=== PATIENT | male | born 1955 | race Caucasian/White ===

== ENCOUNTER 2023-04-07 16:32 | Emergency (ER) | payer MEDICARE, OTHER, SELFPAY ==
[2023-04-07 16:43] VITALS: BP 166/103; BMI 27.4
--- NOTE | 2023-04-07 18:27 | ED.GENMED ---
History of Present Illness
General
Chief Complaint: Skin Surface Trauma
Time Seen by Provider: 04/07/23 18:09
Travel History
Have you had any contact with someone who has COVID-19?: No
Do you have any symptoms of coronavirus? Fever > 100 degrees, chills, cough, shortness of breath, sore throat, loss of taste or smell, muscle aches, or headache?: No
History of Present Illness
History of Present Illness:
60-year-old male presents the emergency department for evaluation of a right middle finger laceration sustained on a table saw. There is a vertical laceration along the extensor surface of the digit from the tip through the proximal phalanx. No
obvious bony tissue visible. Injury directly to the nail plate into the nailbed. Bleeding is now controlled. Last tetanus is unknown
Review of Systems
Review of Systems
Allergies reviewed?: Yes
All Other Systems: ROS reviewed and negative except as documented in HPI and ROS
Phy Exam
Physical Exam
Physical Exam:
GEN: Well appearing, NAD, WDWN
HEENT: Oral mucosa moist, no scleral icterus
Cardiac: Regular rate
Lung: No respiratory distress, no tachypnea
MSK: No gross deformity or injuries
Skin: Good color, no pallor or jaundice, no rashes. 2 cm laceration vertically through the tip of the third phalanx extending into the proximal phalanx adjacent to the DIP joint. Bleeding is controlled. No evident bony injury. Wound runs through
the nailbed and plate.
Neuro: AO x3, moves all extremities freely
Psych: Calm, cooperative
Course
Orders/Labs/Results
Orders:
Orders
04/07/23 18:30
Tetanus/Diphth/Acelpertussis [Adacel] 0.5 ml IM .ONCE ONE
CR Finger(s)/thumb Min 2 Vw Rt Urgent
Comment:
Reason For Exam: R third finger
04/07/23 19:26
Cephalexin Monohydrate [Keflex] 500 mg PO NOW STA
Vital Signs
Initial and Last Documented VS:
Initial Vital Signs
Temp Pulse Resp BP Pulse Ox
98.2 F 71 16 166/103 96
04/07/23 16:43 04/07/23 16:43 04/07/23 16:43 04/07/23 16:43 04/07/23 16:43
Last Documented Vital Signs
Temp Pulse Resp BP Pulse Ox
98.2 F 71 16 166/103 96
04/07/23 16:43 04/07/23 16:43 04/07/23 16:43 04/07/23 16:43 04/07/23 16:43
MDM/Problems Addressed
MDM/Problems Addressed:
X-rays are suggestive of very small tuft fracture. Will start the patient on empiric antibiotics as a result. After copious irrigation I placed 3 5-0 Chromic Gut sutures to the nailbed and eponychium however wound approximation is quite difficult
as there is significant tissue loss. Will recommend outpatient hand surgery follow-up. The wound was dressed with Xeroform and roll gauze
*Critical Care Note
Total Time (30-74mins, 75-104mins- exclusive of procedures): Not Applicable
ED Attending Note
-
Portions of this chart may have been created with voice recognition software.� Occasional wrong word or��sound alike� substitutions may have occurred due to the inherent limitations of voice recognition software.
Discharge Plan
Departure
Patient Disposition: Home (Routine Discharge)
Date of Disposition: 04/07/23
Time of Disposition: 19:26
Patient with high blood pressure during this ER visit?: Yes
Discharge Problem:
Laceration of right middle finger, Open finger fracture
Instructions: Wound Care (DC)
Prescriptions:
New
cephalexin 500 mg capsule
500 mg PO TID 7 Days Qty: 21 0RF
No Action
warfarin [Coumadin] 4 mg Tablet
4 mg PO Q OTHER DAY
Referrals:
Jessica Angel MD [Family Provider] -
Redd Zepeda MD [Active] -
Activity Restrictions/Additional Instructions:
Change dressing using the vaseline gauze tomorrow, then daily with vaseline and non stick gauze
Interventions
Interventions:
*Risk Screen - Suicide Last Done: 04/07/23 16:43
*General Assessment Last Done: 04/07/23 17:42
*Neglect/Abuse Screening Last Done: 04/07/23 16:43
ED- Fall Risk Assessment Last Done: 04/07/23 16:43
*ED COVID-19 Vaccine History Last Done: 04/07/23 16:43
*Nursing Disposition Last Done: 04/07/23 19:38
ED-Skin Assessment Last Done: 04/07/23 17:43
Discharge Date and Time
Discharge Date/Time: 04/07/23 19:38
[2023-04-07] MEDS: ADACEL 0.5 ML IM (18:45)
[2023-04-07] MEDS: KEFLEX 500 MG PO (19:34)
== END 2023-04-07 19:38 | disposition home or self-care (01) ==
LOC: EMR 16:32
PROVIDERS: EMERGENCY PHYSICIAN Emergency Medicine; FAMILY PHYSICIAN Internal Medicine
DX: S62.662B Nondisplaced fracture of distal phalanx of right middle finger, initial encounter for open fracture (principal); W31.2XXA Contact with powered woodworking and forming machines, initial encounter
CPT/HCPCS: 11760; 99283; 90471; 73140; 90715

== ENCOUNTER 2023-09-29 04:58 | Emergency (ER) | payer MEDICARE, OTHER, SELFPAY ==
[2023-09-29 05:01] VITALS: BP 157/79
--- NOTE | 2023-09-29 05:41 | ED.GENMED ---
History of Present Illness
<Nayely Moyer DO - Last Filed: 10/01/23 08:14>
General
Chief Complaint: Urinary Symptoms
Time Seen by Provider: 09/29/23 05:24
History of Present Illness
History of Present Illness:
68-year-old male with history of CAD status post stenting, aortic valve replacement on Coumadin, history of frequent UTIs presenting to the emergency department for concern of UTI. Patient reports 2 days ago he started to have urinary urgency with
dysuria. He went to his primary care doctor yesterday, had his urine tested, however results are still pending. He was started on Bactrim. However, last evening he had worsening symptoms including chills, lower abdominal discomfort, nausea
without vomiting. Reports history of pyelonephritis in the past, was told to come to the ER if fever develop. Reports fever of 101.8 last evening, took Tylenol around 8 PM. Denies chest pain or difficulty breathing. Denies any back or flank
pain. Denies additional acute medical complaints
Phy Exam
<Nayely Moyer DO - Last Filed: 10/01/23 08:14>
Physical Exam
Physical Exam:
General: No acute distress, dry mucous membranes
HEENT: protecting airway
Neck: appears supple
CV: Normal heart rate, regular rhythm, no evidence of cyanosis
Resp: No accessory muscle use, no increased work of breathing, lungs clear to auscultation bilaterally
Abd: Soft and non-distended, mild right-sided tenderness, no rebound or guarding, no CVA tenderness
Extremities: No deformities, no swelling, no erythema, pulses and sensation intact
Neuro: alert, no focal neurologic deficit
: deferred
Rectal: deferred
Psych: Normal affect
Skin: Intact
Course
<Nayely Moyer DO - Last Filed: 10/01/23 08:14>
Orders/Labs/Results
Orders:
Orders
09/29/23 05:34
0.9% Sodium Chloride 1000 ml [Nss] 1,000 ml IV BOLUS
Acetaminophen [Tylenol] 1,000 mg PO NOW STA
Ondansetron Injectable [Zofran] 4 mg IV NOW STA
09/29/23 05:35
CT Abd/pelvis W Iv Cont Urgent
Comment:
Reason For Exam: urinary symptoms, right sided pain, hx pyelo
09/29/23 05:55
Complete Blood Count/With Diff Urgent
Comprehensive Metabolic Panel Urgent
Lactic Acid Urgent
PTT Urgent
Prothrombin Time Urgent
09/29/23 07:13
Urinalysis Reflex To Culture Urgent
Date Specimen was Collected: 09/29/23
Time Specimen was Collected: 07:02
Urine Microscopic Reflex Cult Urgent
Urine Culture Urgent
LESLIE Source: U
Specimen Description:
Date Specimen was Collected: 09/29/23
Time Specimen was Collected: 07:02
09/29/23 08:19
CefTRIAXone [Rocephin] 1,000 mg IV NOW STA
Abnormal Lab Results
09/29/23 09/29/23
05:55 07:13
WBC 14.3 H 10^3/uL
(4.8-10.8)
RBC 4.09 L 10^6/uL
(4.70-6.10)
Hgb 12.3 L g/dL
(13.0-18.0)
Hct 34.8 L %
(39.0-52.0)
Abs Immat Gran (auto) 0.1 H 10^3/uL
(0-0.05)
Absolute Neuts (auto) 12.5 H 10^3/uL
(1.4-6.5)
Absolute Lymphs (auto) 0.6 L 10^3/uL
(1.2-3.4)
Absolute Monos (auto) 1.1 H 10^3/uL
(0.1-0.6)
Neutrophils % 87.3 H %
(42.2-75.2)
Lymphocytes % 4.1 L %
(20.5-51.1)
PT 32.5 H Sec
(11.4-14.6)
APTT 53.7 H Sec
(23.4-35.0)
Glucose 111 H mg/dl
(70-99)
Ur Occult Blood Reflex 4+ A
(Negative)
Leukocyte Esterase Rfl 2+ A
(Negative)
Urine RBC 26-30 A /HPF
(0-2)
Urine WBC (Reflex) 40-50 A /HPF
(0-5)
Urine Bacteria (Reflex) Few A
(Negative)
Urine Glucose Trace A
(Negative)
Urine Albumin (Reflex) 1+ A
(Neg - Trace)
09/29/23 05:55
09/29/23 05:55
Vital Signs
Initial and Last Documented VS:
Initial Vital Signs
Temp Pulse Resp BP Pulse Ox
100.3 F 88 20 157/79 97
09/29/23 05:01 09/29/23 05:01 09/29/23 05:01 09/29/23 05:01 09/29/23 05:01
Last Documented Vital Signs
Temp Pulse Resp BP Pulse Ox
98.5 F 78 18 119/71 96
09/29/23 09:39 09/29/23 09:39 09/29/23 09:39 09/29/23 09:39 09/29/23 09:39
Gulshanlt;Bryce Sewell, - Last Filed: 09/29/23 08:57>
Orders/Labs/Results
Orders:
Orders
09/29/23 05:34
0.9% Sodium Chloride 1000 ml [Nss] 1,000 ml IV BOLUS
Acetaminophen [Tylenol] 1,000 mg PO NOW STA
Ondansetron Injectable [Zofran] 4 mg IV NOW STA
09/29/23 05:35
CT Abd/pelvis W Iv Cont Urgent
Comment:
Reason For Exam: urinary symptoms, right sided pain, hx pyelo
09/29/23 05:55
Complete Blood Count/With Diff Urgent
Comprehensive Metabolic Panel Urgent
Lactic Acid Urgent
PTT Urgent
Prothrombin Time Urgent
09/29/23 07:13
Urinalysis Reflex To Culture Urgent
Date Specimen was Collected: 09/29/23
Time Specimen was Collected: 07:02
Urine Microscopic Reflex Cult Urgent
Urine Culture Urgent
LESLIE Source: U
Specimen Description:
Date Specimen was Collected: 09/29/23
Time Specimen was Collected: 07:02
09/29/23 08:19
CefTRIAXone [Rocephin] 1,000 mg IV NOW STA
Abnormal Lab Results
09/29/23 09/29/23
05:55 07:13
WBC 14.3 H 10^3/uL
(4.8-10.8)
RBC 4.09 L 10^6/uL
(4.70-6.10)
Hgb 12.3 L g/dL
(13.0-18.0)
Hct 34.8 L %
(39.0-52.0)
Abs Immat Gran (auto) 0.1 H 10^3/uL
(0-0.05)
Absolute Neuts (auto) 12.5 H 10^3/uL
(1.4-6.5)
Absolute Lymphs (auto) 0.6 L 10^3/uL
(1.2-3.4)
Absolute Monos (auto) 1.1 H 10^3/uL
(0.1-0.6)
Neutrophils % 87.3 H %
(42.2-75.2)
Lymphocytes % 4.1 L %
(20.5-51.1)
PT 32.5 H Sec
(11.4-14.6)
APTT 53.7 H Sec
(23.4-35.0)
Glucose 111 H mg/dl
(70-99)
Ur Occult Blood Reflex 4+ A
(Negative)
Leukocyte Esterase Rfl 2+ A
(Negative)
Urine RBC 26-30 A /HPF
(0-2)
Urine WBC (Reflex) 40-50 A /HPF
(0-5)
Urine Bacteria (Reflex) Few A
(Negative)
Urine Glucose Trace A
(Negative)
Urine Albumin (Reflex) 1+ A
(Neg - Trace)
09/29/23 05:55
09/29/23 05:55
Vital Signs
Initial and Last Documented VS:
Initial Vital Signs
Temp Pulse Resp BP Pulse Ox
100.3 F 88 20 157/79 97
09/29/23 05:01 09/29/23 05:01 09/29/23 05:01 09/29/23 05:01 09/29/23 05:01
Last Documented Vital Signs
Temp Pulse Resp BP Pulse Ox
98.5 F 78 18 119/71 96
09/29/23 09:39 09/29/23 09:39 09/29/23 09:39 09/29/23 09:39 09/29/23 09:39
<Nayely Moyer, DO - Last Filed: 10/01/23 08:14>
MDM/Problems Addressed
MDM/Problems Addressed:
68-year-old male with history of CAD status post stenting, aortic valve replacement on Coumadin, history of frequent UTIs presenting for fever, chills, abdominal pain, urgency. Vital signs on arrival significant for low-grade fever.
On exam, patient in no acute distress, nontoxic, however does have dry mucous membranes and appears slightly dehydrated. No reproducible CVA tenderness, however does have generalized tenderness to the right side of the abdomen. Symptoms appear
consistent with a complicated UTI. Patient was started on Bactrim yesterday. Unclear if failure of outpatient therapy, given that patient was only started on the medication yesterday. Patient reports history of pyelonephritis in the past
requiring admission. For this reason, will obtain laboratory analysis and CT imaging. Will start IV fluids. Tylenol administered for fever
06:50 -patient with leukocytosis, however normal lactic acid. Blood pressure remains stable without concern for severe sepsis or septic shock. Pending urinalysis and CT imaging, signed out to incoming physician.
<Nayely Moyer DO - Last Filed: 10/01/23 08:14>
*Critical Care Note
Total Time (30-74mins, 75-104mins- exclusive of procedures): Not Applicable
<Bryce Sewell DO - Last Filed: 09/29/23 08:57>
Update Note
Update Note:
I evaluated patient at bedside. The patient is well-appearing on reassess 8:30 AM. Leukocytosis noted, renal function normal. 40-50 white cells per high-power field on urinalysis. Given dose of Rocephin. There is no sign of kidney infection or
ureteral stone on imaging.
ED Attending Note
<Nayely Moyer DO - Last Filed: 10/01/23 08:14>
-
Portions of this chart may have been created with voice recognition software.� Occasional wrong word or��sound alike� substitutions may have occurred due to the inherent limitations of voice recognition software.
Discharge Plan
Departure
Patient Disposition: Home (Routine Discharge)
Date of Disposition: 09/29/23
Time of Disposition: 08:54
Patient with high blood pressure during this ER visit?: Yes
Discharge Problem:
Urinary tract infection
Prescriptions:
No Action
warfarin [Coumadin] 4 mg Tablet
4 mg PO Q OTHER DAY
cephalexin 500 mg capsule
500 mg PO TID 7 Days Qty: 21 0RF
Referrals:
Jessica Angel MD [Family Provider] -
Activity Restrictions/Additional Instructions:
Continue antibiotics; return here if worse. Your CAT scan shows no sign of kidney stone nor kidney infection.
Interventions
Interventions:
*Risk Screen - Suicide Last Done: 09/29/23 05:01
*General Assessment Last Done: 09/29/23 05:01
*Neglect/Abuse Screening Last Done: 09/29/23 05:01
ED- Fall Risk Assessment Last Done: 09/29/23 05:01
*ED COVID-19 Vaccine History Last Done: 09/29/23 05:01
*Nursing Disposition Last Done: 09/29/23 09:39
ED-Male Genitourinary Assessment Last Done: 09/29/23 06:01
Discharge Date and Time
Discharge Date/Time: 09/29/23 09:41
Print Language: OCCITAN
[2023-09-29] MEDS: ZOFRAN 4 MG IV (05:53)
[2023-09-29] MEDS: TYLENOL 1000 MG PO (05:53)
[2023-09-29] MEDS: NSS 1000 IV (05:53)
[2023-09-29 05:56] VITALS: BP 125/71
[2023-09-29 06:01] VITALS: BMI 29.6
[2023-09-29 06:04] LABS: % Basophils 0.2 % (0-2); % Eosinophils 0.1 % (0-6); % Immature Granulocytes 0.5 % (0-0.5); % Lymphocytes 4.1 % (20.5-51.1); % Monocytes 7.8 % (1.7-9.3); % Neutrophils 87.3 % (42.2-75.2); Absolute Immature Granulocytes 0.1 10^3/uL (0-0.05); Absolute Lymphocytes 0.6 10^3/uL (1.2-3.4); Absolute Monocytes 1.1 10^3/uL (0.1-0.6); Absolute Neutrophils 12.5 10^3/uL (1.4-6.5); Hematocrit 34.8 % (39.0-52.0); Hemoglobin 12.3 g/dL (13.0-18.0); Mean Corp Hgb Conc. 35.3 g/dL (33.0-37.0); Mean Corpuscular Hgb 30.1 pg (27.0-31.0); Mean Corpuscular Volume 85.1 fL (80.0-94.0); Mean Platelet Volume 8.7 fL (7.4-10.4); Nucleated Red Blood Cells % 0 % (-); Platelet Count 162 10^3/uL (130-400); Red Blood Cell Count 4.09 10^6/uL (4.70-6.10); Red Cell Dist. Width 14.5 % (11.5-14.5); White Blood Cell Count 14.3 10^3/uL (4.8-10.8)
[2023-09-29 06:15] LABS: INR 3.11; PT 32.5 Sec (11.4-14.6)
[2023-09-29 06:16] LABS: APTT 53.7 Sec (23.4-35.0)
[2023-09-29 06:17] LABS: Lactic Acid 1.6 mmol/L (0.7-2.0)
[2023-09-29 06:25] LABS: ALT (SGPT) 20 U/L (0-50); AST (SGOT) 23 U/L (17-59); Albumin 4.1 g/dl (3.5-5.0); Alkaline Phosphatase 97 U/L (38-126); Blood Urea Nitrogen 18 mg/dl (9-20); Carbon Dioxide 23 mmol/L (22-30); Chloride 103 mmol/L (98-107); Estimated Creatinine Clearance 60 ml/min; Glucose 111 mg/dl (70-99); Potassium 3.8 mmol/L (3.5-5.1); Sodium 135 mmol/L (135-145); Total Bilirubin 0.8 mg/dl (0.2-1.3); Total Protein 6.6 g/dl (6.3-8.2); eGFR > 60.00
[2023-09-29 07:27] LABS: Urine Albumin 1+ (Neg - Trace); Urine Bilirubin Negative (Negative); Urine Character Slightly Cloudy (Clear); Urine Color Yellow; Urine Glucose Trace (Negative); Urine Ketone Negative (Negative); Urine Leukocyte 2+ (Negative); Urine Nitrite Negative (Negative); Urine Occult Blood 4+ (Negative); Urine Specific Gravity 1.015 (<1.030); Urine Urobilinogen Negative (Neg - 1+)
[2023-09-29 08:00] LABS: Urine Squamous Cell 0-2 /LPF (Few)
[2023-09-29 08:01] LABS: Urine Bacteria Few (Negative); Urine Red Blood Cell 26-30 /HPF (0-2); Urine White Cell 40-50 /HPF (0-5)
[2023-09-29] MEDS: ROCEPHIN 1000 MG IV (08:44)
[2023-09-29 09:26] VITALS: BP 119/71
[2023-09-29 09:39] VITALS: BP 119/71
== END 2023-09-29 09:41 | disposition home or self-care (01) ==
LOC: EMR 04:58
PROVIDERS: EMERGENCY PHYSICIAN Student in an Organized Health Care Education/Training Program; FAMILY PHYSICIAN Internal Medicine
DX: N39.0 Urinary tract infection, site not specified (principal); I25.10 Atherosclerotic heart disease of native coronary artery without angina pectoris; Z79.01 Long term (current) use of anticoagulants; Z87.440 Personal history of urinary (tract) infections; Z95.2 Presence of prosthetic heart valve; Z95.5 Presence of coronary angioplasty implant and graft
CPT/HCPCS: 99284; 96374; 96375; 96361; 74177; 80053; 81003; 81015; 83605; 85025; 85610; 85730; 87086; Q9967

== ENCOUNTER 2023-11-02 17:50 | Emergency (ER) | payer MEDICARE, OTHER, SELFPAY ==
[2023-11-02 18:04] VITALS: BP 125/81
[2023-11-02 19:35] VITALS: BP 136/89
--- NOTE | 2023-11-02 19:48 | ED.GENMED ---
History of Present Illness
General
Chief Complaint: Cold/Flu/URI Symptoms
Source: patient and spouse
Exam Limitations: none
Time Seen by Provider: 11/02/23 19:22
Nursing documentation reviewed up to this point in time: agreed with
History of Present Illness
History of Present Illness:
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
the ER. Patient started with symptoms of COVID yesterday tested positive. He has a fever chills body aches cough denies shortness of breath. Patient is drinking fluids. He was sent by his oncologist at [facility] (DR Abad ) for admission for IV
remdesivir
Review of Systems
Review of Systems
Allergies reviewed?: Yes
All Other Systems: ROS reviewed and negative except as documented in HPI and ROS
Constitutional: Reports fever, fatigue and chills
EENT: Reports no symptoms
Respiratory: Reports cough; Denies trouble breathing
Cardiac: Reports no symptoms
ABD/GI: Reports no symptoms; Denies nausea or vomiting
: Reports no symptoms
Musculoskeletal: Reports other (body aches )
Skin: Reports no symptoms
Neurological: Reports no symptoms
Hematologic/Lymphatic: Reports no symptoms
Psychiatric: Reports no symptoms
Phy Exam
General Physical Exam
General Presentation: no apparent distress
General age: appears stated age
General Skin: warm and dry
General Habitus: normal
General Mental: alert
General Hydration: appears well hydrated
Cardiovascular Exam
Cardiovascular Exam: regular rate/rhythm and no murmur
Pulmonary Exam
Pulmonary Exam: lungs clear and no respiratory distress
Neurological Exam
Neurological Exam: alert and oriented x3
Musculoskeletal Exam
Musculoskeletal Exam: full ROM
Skin Exam
Skin Exam: normal color and warm/dry
Psychiatric Exam
Psychiatric Exam: normal mood/affect
Course
Orders/Labs/Results
Orders:
Orders
11/02/23 20:24
Chest [CR Chest - 2 Views ] Urgent
Comment:
Reason For Exam: cough covid +
Vital Signs
Initial and Last Documented VS:
Initial Vital Signs
Temp Pulse Resp BP Pulse Ox
99.6 F 87 20 125/81 97
11/02/23 18:04 11/02/23 18:04 11/02/23 18:04 11/02/23 18:04 11/02/23 18:04
Last Documented Vital Signs
Temp Pulse Resp BP Pulse Ox
99.7 F 81 16 133/105 98
11/02/23 19:35 11/02/23 21:04 11/02/23 21:04 11/02/23 21:04 11/02/23 21:04
MDM/Problems Addressed
Differential Diagnosis Includes:
not limited to covid
MDM/Problems Addressed:
Patient is a 68-year-old male as documented with history melanoma metastasis to lung treated several years ago at [facility] with immunotherapy and radiation currently no longer requiring treatment. Patient started with COVID symptoms yesterday tested
positive. Patient does have fever chills cough body aches but denies shortness of breath. Patient arrives to the awake alert no acute distress he is nontoxic. Not hypoxic clear lungs nontachycardic. He did take Tylenol prior to arrival
temperature is down. Patient's reports they were sent by their oncologist at [facility] to get IV remdesivir. Patient is not a candidate for admission and is not hypoxic and does not meet criteria for admission/remdesivir. Chest x-ray offered
patient declines. reports they will call oncologist tomorrow however patient is very stable for discharge home with supportive care for COVID.
*Pulse Oximetry
Patient hypoxic: no
*Critical Care Note
Total Time (30-74mins, 75-104mins- exclusive of procedures): Not Applicable
ED Attending Note
-
Portions of this chart may have been created with voice recognition software.� Occasional wrong word or��sound alike� substitutions may have occurred due to the inherent limitations of voice recognition software.
Discharge Plan
Departure
Patient Disposition: Home (Routine Discharge)
Date of Disposition: 11/02/23
Time of Disposition: 20:50
Patient with high blood pressure during this ER visit?: Yes
Condition: Fair
Covid-19: Not Applicable
Discharge Problem:
COVID-19
Instructions: COVID-19 ED
Prescriptions:
No Action
warfarin [Coumadin] 4 mg Tablet
4 mg PO Q OTHER DAY
cephalexin 500 mg capsule
500 mg PO TID 7 Days Qty: 21 0RF
Referrals:
Jessica Angel MD [Family Provider] -
Activity Restrictions/Additional Instructions:
As discussed be sure to get plenty of rest stay well-hydrated. You may take Tylenol for symptoms. Follow-up with your oncologist as discussed at [facility] for further evaluation return if any worsening of symptoms.
Interventions
Interventions:
*Risk Screen - Suicide Last Done: 11/02/23 18:04
*General Assessment Last Done: 11/02/23 18:04
*Neglect/Abuse Screening Last Done: 11/02/23 18:04
ED- Fall Risk Assessment Last Done: 11/02/23 19:23
*ED COVID-19 Vaccine History Last Done: 11/02/23 19:23
*Nursing Disposition Last Done: 11/02/23 21:05
ED- Pulmonary Assessment Last Done: 11/02/23 19:23
Discharge Date and Time
Discharge Date/Time: 11/02/23 21:05
Print Language: [place]
[2023-11-02 21:04] VITALS: BP 133/105
== END 2023-11-02 21:05 | disposition home or self-care (01) ==
LOC: EMR 17:50
PROVIDERS: EMERGENCY PHYSICIAN Emergency Medicine; FAMILY PHYSICIAN Internal Medicine
DX: U07.1 COVID-19 (principal); I10 Essential (primary) hypertension; E78.00 Pure hypercholesterolemia, unspecified
CPT/HCPCS: 99283

== ENCOUNTER 2024-03-22 08:57 | Emergency (ER) | payer MEDICARE, OTHER, SELFPAY ==
[2024-03-22 09:03] VITALS: BP 144/86
--- NOTE | 2024-03-22 10:42 | ED.GENMED ---
History of Present Illness
General
Chief Complaint: Abdominal Symptoms
Time Seen by Provider: 03/22/24 10:42
History of Present Illness
History of Present Illness:
TIME OF INITIAL ENCOUNTER: 10:45 AM
HPI: The patient presents with abdominal pain that started about 8 hours ago. This feels similar to time that he had diverticulitis. He was admitted for [place] for diverticulitis in the past. He has had no fevers. The pain is primarily
localized to the left lower quadrant. He has had some constipation recently. He has no rectal bleeding.
EXAM:
GENERAL: Well appearing in no distress
HEENT: Moist oral mucosa
CARDIOVASCULAR: No murmurs, normal heart rate, regular rhythm, No chest wall tenderness
PULMONARY: No respiratory distress, breath sounds are clear and equal
ABDOMEN: Soft with no peritoneal signs, moderate left lower quadrant tenderness
NEUROLOGIC: Excellent strength all extremities, no coordination deficits
PSYCHIATRIC: Appropriate mental status, normal insight and judgement
EXTREMITIES: Nontender, no edema, moves all extremities equally
SKIN: No rash, no lesions
NUMBER AND COMPLEXITY OF PROBLEMS ADDRESSED AT THE ENCOUNTER
� Chronic conditions affecting care: Has had cardiac arrest, CAD, high blood pressure, colitis, diverticular disease, melanoma
� Acute Exacerbation and/or Progression of Chronic Illness: This is an acute problem but is had similar episode in the past
� Differential Diagnosis includes: Diverticulitis, colitis, mesenteric adenitis, epiploic appendagitis, muscle strain of the abdominal wall, ureteral stone
AMOUNT AND/OR COMPLEXITY OF DATA TO BE REVIEWED AND ANALYZED
� I performed an independent evaluation of and my interpretation is:
EKG:
CT: I personally viewed CT imaging and suspected short segment of diverticulitis
X-rays:
Laboratory Studies: White count 11.9, hemoglobin 12.6, INR 2.02, chemistries unremarkable, lipase and LFTs unremarkable
Other:
� Review of other/old records: The patient was seen in the Emergency Department in October 2023 with COVID
� Clinical information was obtained by an independent historian: I spoke to the at bedside
� Prescriptions/Medications Considered but not given:
� Further testing considered but not performed:
RISK OF COMPLICATIONS AND/OR MORBIDITY OR MORTALITY OF PATIENT MANAGEMENT
� Social determinants of health affecting care: Lives at home, planning to travel to [place] in 10 days
� Discussion with other providers:
� Escalation of care including admission/observation vs risk of discharge considered: The patient appears fairly comfortable but does have moderate left lower quadrant pain CT imaging obtained.
ANY OTHER UPDATES:
1:10 PM: I reassessed patient. The patient appears very comfortable and was resting comfortably after a low-dose of Dilaudid was given. The patient states that he had 1 episode of diverticulitis where he had a perforation. He was told that he
might require surgery if this happens again. They prefer to follow-up with [facility] as opposed to [facility].
1:30 PM: Remains to appear very comfortable. Will start Augmentin. Will also give short course of tramadol but he is encouraged to return here if worse.
Phy Exam
Physical Exam
Physical Exam:
See HPI
Course
Orders/Labs/Results
Orders:
Orders
03/22/24 09:11
Electrocardiogram (*1) Urgent
Reason for Study: Abdominal Pain
EKG- Treatment ONCE
03/22/24 10:46
HYDROmorphone [Dilaudid] 0.5 mg IV NOW STA
Ondansetron Injectable [Zofran] 4 mg IV NOW STA
03/22/24 10:47
CT Abd/pelvis W Iv Cont Urgent
Comment:
Reason For Exam: LLQ pain tender
03/22/24 11:00
Prothrombin Time Urgent
03/22/24 11:01
Complete Blood Count/With Diff Urgent
Comprehensive Metabolic Panel Urgent
Lipase Urgent
03/22/24 13:22
Amoxicillin 875 mg/Clav 125 mg [Augmentin 875 mg/125 mg] 1 tablet PO NOW STA
Abnormal Lab Results
03/22/24 03/22/24
11:00 11:01
WBC 11.9 H 10^3/uL
(4.8-10.8)
RBC 4.34 L 10^6/uL
(4.70-6.10)
Hgb 12.6 L g/dL
(13.0-18.0)
Hct 38.4 L %
(39.0-52.0)
MCHC 32.8 L g/dL
(33.0-37.0)
Absolute Neuts (auto) 9.0 H 10^3/uL
(1.4-6.5)
Absolute Monos (auto) 1.4 H 10^3/uL
(0.1-0.6)
Neutrophils % 75.9 H %
(42.2-75.2)
Lymphocytes % 11.1 L %
(20.5-51.1)
Monocytes % 11.8 H %
(1.7-9.3)
PT 23.4 H Sec
(11.4-14.6)
Carbon Dioxide 31 H mmol/L
(22-30)
Glucose 100 H mg/dl
(70-99)
03/22/24 11:01
03/22/24 11:01
Vital Signs
Initial and Last Documented VS:
Initial Vital Signs
Temp Pulse Resp BP Pulse Ox
36.9 C 68 16 144/86 98
03/22/24 09:03 03/22/24 09:03 03/22/24 09:03 03/22/24 09:03 03/22/24 09:03
Last Documented Vital Signs
Temp Pulse Resp BP Pulse Ox
36.9 C 68 16 131/79 100
03/22/24 09:03 03/22/24 09:03 03/22/24 09:03 03/22/24 11:00 03/22/24 11:00
*Critical Care Note
Total Time (30-74mins, 75-104mins- exclusive of procedures): Not Applicable
ED Attending Note
-
Portions of this chart may have been created with voice recognition software.� Occasional wrong word or��sound alike� substitutions may have occurred due to the inherent limitations of voice recognition software.
Discharge Plan
Departure
Patient Disposition: Admit
Date of Disposition: 03/22/24
Time of Disposition: 13:22
Presentation/result/management discussed w/ accepting MD/DO: Hospitalist
Discharge Problem:
Diverticulitis
Instructions: Diverticulitis, BLOOD PRESSURE
Prescriptions:
New
amoxicillin-pot clavulanate 875-125 mg tablet
1 tab PO BID Qty: 14 0RF
tramadol 50 mg tablet
50 - 100 mg PO Q8H PRN (Reason: Pain) Qty: 15 0RF
No Action
warfarin [Coumadin] 4 mg Tablet
4 mg PO Q OTHER DAY
cephalexin 500 mg capsule
500 mg PO TID 7 Days Qty: 21 0RF
Referrals:
Neeraj Zarate MD [Active] - Follow up in 1 week
Jessica Angel MD [Family Provider] -
Margareth Oneil DO [Active] - Follow up in 1 week
Activity Restrictions/Additional Instructions:
The CAT scan shows a short segment of diverticulitis with no sign of complication such as abscess or perforation. Your white count was minimally elevated 11.9. I have given you the contact information for a local GI doctor (Dr. Oneil) (
[facility]) sleep and I have also given you the contact information for local colorectal surgeon since you have had multiple bouts of diverticulitis in the past.
Interventions
Interventions:
*Risk Screen - Suicide Last Done: 03/22/24 09:03
*Neglect/Abuse Screening Last Done: 03/22/24 09:03
Discharge Date and Time
Print Language: [place]
[2024-03-22 10:58] VITALS: BP 136/71; BMI 27.6
[2024-03-22 11:00] VITALS: BP 131/79
[2024-03-22] MEDS: DILAUDID 0.5 MG IV (11:04)
[2024-03-22] MEDS: ZOFRAN 4 MG IV (11:04)
[2024-03-22 11:15] LABS: % Basophils 0.3 % (0-2); % Eosinophils 0.6 % (0-6); % Immature Granulocytes 0.3 % (0-0.5); % Lymphocytes 11.1 % (20.5-51.1); % Monocytes 11.8 % (1.7-9.3); % Neutrophils 75.9 % (42.2-75.2); Absolute Eosinophils 0.1 10^3/uL (0-0.7); Absolute Lymphocytes 1.3 10^3/uL (1.2-3.4); Absolute Monocytes 1.4 10^3/uL (0.1-0.6); Hematocrit 38.4 % (39.0-52.0); Hemoglobin 12.6 g/dL (13.0-18.0); Mean Corp Hgb Conc. 32.8 g/dL (33.0-37.0); Mean Corpuscular Volume 88.5 fL (80.0-94.0); Mean Platelet Volume 8.4 fL (7.4-10.4); Nucleated Red Blood Cells % 0 % (-); Platelet Count 186 10^3/uL (130-400); Red Blood Cell Count 4.34 10^6/uL (4.70-6.10); White Blood Cell Count 11.9 10^3/uL (4.8-10.8)
[2024-03-22 11:27] LABS: ALT (SGPT) 20 U/L (0-50); AST (SGOT) 26 U/L (17-59); Albumin 4.2 g/dl (3.5-5.0); Alkaline Phosphatase 83 U/L (38-126); Blood Urea Nitrogen 19 mg/dl (9-20); Calcium 9.1 mg/dl (8.4-10.2); Carbon Dioxide 31 mmol/L (22-30); Chloride 101 mmol/L (98-107); Glucose 100 mg/dl (70-99); Lipase 151 U/L (23-300); Potassium 4.2 mmol/L (3.5-5.1); Sodium 140 mmol/L (135-145); Total Bilirubin 0.9 mg/dl (0.2-1.3); Total Protein 6.8 g/dl (6.3-8.2); eGFR > 60.00
[2024-03-22 11:31] LABS: INR 2.02; PT 23.4 Sec (11.4-14.6)
[2024-03-22 12:00] VITALS: BP 124/81
[2024-03-22 14:08] VITALS: BP 138/79
== END 2024-03-22 14:10 | disposition home or self-care (01) ==
LOC: EMR 08:57
PROVIDERS: EMERGENCY PHYSICIAN Emergency Medicine; FAMILY PHYSICIAN Internal Medicine
DX: K57.32 Diverticulitis of large intestine without perforation or abscess without bleeding (principal)
CPT/HCPCS: 99284; 96374; 96375; 74177; 80053; 83690; 85025; 85610; 93005; Q9967

== ENCOUNTER 2024-03-29 09:38 | Emergency (ER) | payer MEDICARE, OTHER, SELFPAY ==
[2024-03-29 09:43] VITALS: BP 121/76
[2024-03-29 10:16] LABS: COVID-19 Antigen Negative (Negative)
--- NOTE | 2024-03-29 10:46 | ED.GENMED ---
History of Present Illness
General
Chief Complaint: Cold/Flu/URI Symptoms
Source: patient
Exam Limitations: none
Time Seen by Provider: 03/29/24 10:44
Nursing documentation reviewed up to this point in time: agreed with
History of Present Illness
History of Present Illness:
69-year-old male with history of lung cancer, ex smoker, cardiac arrest, CAD, HLD, HTN, [place], aortic valve replacement, diverticulitis,, anxiety presents for cough, fever, fatigue starting 6 days ago ( with similar symptoms), had fever max 101 4
days ago but none since. Paroxysms of cough
Pt just finished 7 days of Augmentin for diverticulitis.
Flu A positive
Covid neg
CXR no PNA
Pt totally non toxic, pleasant, conversive
Drank 500 ml apple juice
Rx for Tessalon Perles given to pt. He has some at home he states helps with the cough.
Course
Orders/Labs/Results
Orders:
Orders
03/29/24 09:47
COVID-19 Antigen Urgent
Source: Nasal Swab
Influenza A+B Rapid Molecular Urgent
LESLIE Source: Nasal Swab
Specimen Description:
03/29/24 09:54
Chest [CR Chest - 2 Views ] Urgent
Comment:
Reason For Exam: cough, SOB
Vital Signs
Initial and Last Documented VS:
Initial Vital Signs
Temp Pulse Resp BP Pulse Ox
97.3 F 78 18 121/76 99
03/29/24 09:43 03/29/24 09:43 03/29/24 09:43 03/29/24 09:43 03/29/24 09:43
Last Documented Vital Signs
Temp Pulse Resp BP Pulse Ox
97.3 F 74 16 121/76 99
03/29/24 09:43 03/29/24 10:31 03/29/24 10:31 03/29/24 09:43 03/29/24 10:31
ED Attending Note
-
Portions of this chart may have been created with voice recognition software.� Occasional wrong word or��sound alike� substitutions may have occurred due to the inherent limitations of voice recognition software.
Discharge Plan
Departure
Prescriptions:
No Action
warfarin [Coumadin] 4 mg Tablet
4 mg PO Q OTHER DAY
cephalexin 500 mg capsule
500 mg PO TID 7 Days Qty: 21 0RF
amoxicillin-pot clavulanate 875-125 mg tablet
1 tab PO BID Qty: 14 0RF
tramadol 50 mg tablet
50 - 100 mg PO Q8H PRN (Reason: Pain) Qty: 15 0RF
Interventions
Interventions:
*Risk Screen - Suicide Last Done: 03/29/24 09:45
ED- Pulmonary Assessment Last Done: 03/29/24 10:31
Discharge Date and Time
Print Language: [place] ISLAND[place]
== END 2024-03-29 11:35 | disposition home or self-care (01) ==
LOC: EMR 09:38
PROVIDERS: Emergency Medicine; EMERGENCY PHYSICIAN Emergency Medicine; FAMILY PHYSICIAN Internal Medicine
DX: J10.1 Influenza due to other identified influenza virus with other respiratory manifestations (principal); I25.10 Atherosclerotic heart disease of native coronary artery without angina pectoris; I10 Essential (primary) hypertension; E78.5 Hyperlipidemia, unspecified; I25.2 Old myocardial infarction; Z87.891 Personal history of nicotine dependence; Z95.2 Presence of prosthetic heart valve; Z86.74 Personal history of sudden cardiac arrest; Z85.118 Personal history of other malignant neoplasm of bronchus and lung
CPT/HCPCS: 99284; 71046; 87502; 87811

== ENCOUNTER 2025-01-02 15:21 | Emergency (ER) | payer MEDICARE, OTHER, SELFPAY ==
[2025-01-02 15:30] VITALS: BP 130/81
[2025-01-02 15:49] LABS: Hematocrit 36.9 % (39.0-52.0); Hemoglobin 12.2 g/dL (13.0-18.0); Mean Corp Hgb Conc. 33.1 g/dL (33.0-37.0); Mean Corpuscular Volume 89.6 fL (80.0-94.0); Nucleated Red Blood Cells % 0 % (-); Platelet Count 201 10^3/uL (130-400); Red Cell Dist. Width 14.2 % (11.5-14.5)
[2025-01-02 16:07] LABS: ALT (SGPT) 18 U/L (0-50); AST (SGOT) 20 U/L (17-59); Albumin 4.0 g/dl (3.5-5.0); Alkaline Phosphatase 67 U/L (38-126); Blood Urea Nitrogen 20 mg/dl (9-20); Calcium 9.6 mg/dl (8.4-10.2); Carbon Dioxide 28 mmol/L (22-30); Chloride 107 mmol/L (98-107); Glucose 75 mg/dl (70-99); INR 1.69; PT 20.1 Sec (11.4-14.6); Potassium 4.0 mmol/L (3.5-5.1); Sodium 141 mmol/L (135-145); Total Protein 6.7 g/dl (6.3-8.2); eGFR > 60.00
[2025-01-02 16:08] LABS: APTT 30.7 Sec (23.4-35.0)
[2025-01-02 18:20] VITALS: BP 138/85
[2025-01-02 19:00] VITALS: BP 128/83
[2025-01-02 19:05] VITALS: BMI 27.8
--- NOTE | 2025-01-02 19:13 | ED.GENMED ---
History of Present Illness
General
Chief Complaint: Fatigue
Time Seen by Provider: 01/02/25 19:13
History of Present Illness
History of Present Illness:
FOCUSED PAST MEDICAL HISTORY
- CAD, lung cancer, high blood pressure, hypothyroidism, melanoma, aortic valve replacement
REVIEW OF OLD RECORDS
- I reviewed old records, no hospitalizations at [facility], in March of this year, he was seen in the ER diagnosed with influenza
- I reviewed note in epic link from the nurse advising patient to go to the ER
- I reviewed [facility] notes indicating that Dr. Fraire performed left ureteroscopy with and removal of left ureteral stone 12/29/2024 at 10
Note:
CHIEF COMPLAINT(S)
Discomfort and achiness post-urological procedure with shortness of breath upon exertion.
HISTORY OF PRESENT ILLNESS
The patient is a 69-year-old male who underwent a ureteroscopy with lithotripsy on Wednesday at [facility] for a diagnosed 10 mm kidney stone. He has a known hernia in the same region which has caused an achy sensation for some time. Post-procedure, the
patient reports an increase in discomfort, described as achy rather than painful. He also notes that since the procedure, he experiences shortness of breath when walking. The last occurrence of similar symptoms was during cancer treatment, which is
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 His spouse observed this symptom and expressed concern due to past internal bleeding. The patient is on Coumadin (warfarin), resumed on Wednesday night
post-surgery, with a recent INR of 1.6, below the target of 2.5. He also started taking Tamsulosin (Flomax) around the time of the procedure but questions its contribution to his symptoms due to its sides. He had shortness of breath and was advised
to provide a urine sample, which appeared clear.
PAST MEDICAL AND SURIGICAL HISTORY
- Stage four melanoma metastasized to the lungs in the past.
- Known hernia.
- Recent urological procedure for kidney stones.
- History of internal bleeding during cancer treatment.
SOCIAL DETERMINANTS AFFECTING HEALTH
The patient is currently experiencing stress related to symptoms reminiscent of a past serious health episode, leading to anxiety and concern for his well-being.
SOCIAL HISTORY
- The patient is on medical therapy with Coumadin.
MEDICATIONS
- Coumadin (resumed post-surgery on Wednesday).
- Tamsulosin (recently started post-procedure).
REVIEW OF SYSTEMS
- General: Post-procedural achiness, but denies pain.
- Respiratory: Shortness of breath upon exertion, recurrent post-surgery.
- Genitourinary: Clear urine returned post-procedure.
- Musculoskeletal: Achiness associated with hernia and kidney stones.
PHYSICAL EXAM
General: Alert, no acute distress. Does not appear particularly weak
Skin: Warm, dry.
Head: Normocephalic, atraumatic.
Neck: Supple, trachea midline.
Eyes, Ears, Nose, Mouth and Throat: Oral mucosa moist.
Cardiovascular: Normal peripheral perfusion, No edema.
Respiratory: Respirations are non-labored.
Gastrointestinal: Abdomen nondistended. No significant abdominal tenderness, there is some vague discomfort to palpation with suggestion of hernia sac into the left hemiscrotum
Back: Normal range of motion, Normal alignment.
Musculoskeletal: Normal ROM, normal strength.
Neurological: Alert and oriented to person, place, time, and situation, No focal neurological deficit observed.
Psychiatric: Cooperative, appropriate mood & affect.
PROBLEM LIST
Acute:
- Post-procedure discomfort and achiness.
- Shortness of breath on exertion.
Chronic:
- History of recurrent kidney stones.
- Stage four melanoma.
PLAN
- Perform a computed tomography (CT) scan of the chest and abdomen to evaluate for potential complications, such as pulmonary embolism or hernia issues.
- Consider the possibility of ceasing Tamsulosin for a few days as a precaution against medication-related side effects.
- Monitor International Normalized Ratio (INR) levels and adjust Coumadin dosing as necessary to achieve therapeutic range.
- Encourage the patient to provide a urine sample for further evaluation.
DIFFERENTIAL DIAGNOSIS
The Differential Diagnosis includes, in no particular order and is not limited to:
- Pulmonary embolism
- Post-procedural pain
- Hernia complications
- Medication side effects (e.g., from Coumadin, Tamsulosin)
- Recurrence or progression of metastatic melanoma
- Urinary tract infection
- Acute kidney injury
- Hypercoagulable state
- Anemia due to bleeding
- Pulmonary infection
RADIOLOGY
- CTA shows no PE but the patient does have a 1.7 cm triangular-shaped opacity in the anteromedial right middle lobe/inferior right upper lobe contiguous with pleural surface of uncertain etiology, there is moderate left hydroureteronephrosis but no
ureteral stone
EKG
- Sinus 71, nonspecific ST abnormality, no significant change from 03/22/2024
LABS
- White count 8.6, hemoglobin 12.2 and was 12.6 in March 2024, chemistries normal, blood noted on urinalysis
UPDATE
-SUMMARY OF ENCOUNTER
The patient, a 69-year-old male with a history of metastatic melanoma to the lungs, presented with discomfort and shortness of breath following a recent ureteroscopy and lithotripsy. A CT scan was conducted to assess potential complications. The
scan showed no signs of kidney stones, which were presumably removed during surgery, and no indications of a blood clot in the lungs. Some swelling around the ureter was noted, as well as a small 1.7 cm triangular-shaped area in the right lung,
potentially linked to the patients cancer history. Blood tests indicated normal white blood cells, and INR was 1.7, suggesting minimal clot risk. The patients vital signs were stable, and he reported feeling well. A urine test suggested the presence
of blood but showed no significant increase in white blood cells, indicating no strong evidence of a current urinary tract infection. There was no compelling reason to keep the patient in the hospital, and he was deemed fit for discharge with
follow-up plans.
DISPOSITION
Discharge.
ASSESSMENT
Post-procedure achiness and shortness of breath, possible cancer-related changes in the lung, no evidence of active infection or clotting, hemodynamically stable.
PLAN
Discharge the patient with instructions for urologist follow-up. Provide relevant medical records for patient use.
INDEPENDENT REVIEW OF LABS AND INTERPRETATION OF TESTS
-My independent review of the urinalysis showed blood in the urine, presumed due to recent kidney stone procedure.
-My independent review of the complete blood count (CBC) showed normal white blood cell count.
-My independent review of INR is 1.7, indicating it remains below the therapeutic target of 2.5 but not excessively low.
My independent interpretation of the CT scan of the chest did not show any signs of blood clotting. The scan did reveal a 1.7 cm triangular-shaped area in the right lung, potentially related to the patients metastatic melanoma history.
MEDICATION RECONCILIATION
The patient discontinued the use of antibiotics post-surgery after completing a course. A prescription for augmentin was considered but ultimately not given to avoid unnecessary antibiotic use and potential side effects such as Clostridioides
difficile infection.
MEDICAL DECISION MAKING
-Chronic conditions affecting care: metastatic melanoma to lungs, recent ureteroscopy for kidney stones.
-Differential Diagnosis: Pulmonary embolism, post-procedural pain, hernia complications, medication side effects (e.g., from Coumadin, Tamsulosin), recurrence or progression of metastatic melanoma, urinary tract infection, acute kidney injury,
hypercoagulable state.
-Data:
Category 1
-Reviewed prior patient records through [facility].
-Urine analysis and CBC reviewed with no significant infection evidence.
-Consideration was given to prescribing antibiotics but was decided against.
Category 2
-My independent interpretation of the CT scan of the chest showed no blood clot, but a small triangular area in the lung correlated with past melanoma.
-Risk:
Consideration of Admission/Observation: Escalation of care including admission/observation was considered given the complexity and risk of the patients presenting complaint and exam findings; however, ultimately, the patient is safe for outpatient
management with close follow-up. Reasoning: Work-up reassuring, does not reveal any acute life/organ-threatening processes, patients symptoms well controlled upon reevaluation, reexamination is reassuring, vitals are stable, reliable for follow-up.
DIAGNOSIS
- Generalized weakness
- Post-procedural pain (ICD-10: G89.18)
- History of metastatic melanoma to the lungs (ICD-10: C43.9)
- Hematuria due to kidney stone procedure (ICD-10: R31.9)
I have also given contact information for a local general surgeon as he is concerned of pain in the left scrotal region which may be related to fat-containing inguinal hernia as confirmed by MRI and I did visualize this on CT imaging tonight
although not reported by radiologist
Past History
Past History
ED Past Medical History: Cancer ([place]), Hyperthyroidism and Other (Cardiac arrest, CAD, HTN, HLD, [place])
ED Past Surgical History: Cardiac (Aortic valve replacement)
Social History
Tobacco: Former smoker
Alcohol: None
Personal:
Living: with family
Phy Exam
Physical Exam
Physical Exam:
See HPI
Course
Orders/Labs/Results
Orders:
Orders
01/02/25 15:33
Electrocardiogram (*1) Urgent
Reason for Study: Shortness of Breath
EKG- Treatment ONCE
01/02/25 15:38
Complete Blood Count/With Diff Urgent
Comprehensive Metabolic Panel Urgent
PT/INR [Prothrombin Time] Urgent
Is patient on Coumadin/Warfarin?: No
Comment: [email or web address]
PTT Urgent
TSH Reflex To Free T4 Urgent
Comment: ADD ON
01/02/25 19:15
Add On- LAB Urgent
Tests Added?: tsh reflex fT4
01/02/25 19:23
CT Abd/pel Without Iv Or Oral Urgent
Comment:
Reason For Exam: L pain after ureteroscopy / lithotripsy
CT Chest PE Study Urgent
Comment:
Reason For Exam: sob, h/o lung CA, subtherapeutic INR
0.9% Sodium Chloride 500 ml [Nss] 500 ml IV BOLUS
01/02/25 20:02
Urinalysis Reflex To Culture Urgent
Date Specimen was Collected: 01/02/25
Time Specimen was Collected: 19:42
Urine Microscopic Reflex Cult Urgent
Urine Culture Urgent
LESLIE Source: U
Specimen Description:
Date Specimen was Collected: 01/02/25
Time Specimen was Collected: 19:42
Abnormal Lab Results
01/02/25 01/02/25
15:38 20:02
RBC 4.12 L 10^6/uL
(4.70-6.10)
Hgb 12.2 L g/dL
(13.0-18.0)
Hct 36.9 L %
(39.0-52.0)
Absolute Monos (auto) 1.3 H 10^3/uL
(0.1-0.6)
Lymphocytes % 18.9 L %
(20.5-51.1)
Monocytes % 15.5 H %
(1.7-9.3)
PT 20.1 H Sec
(11.4-14.6)
Ur Occult Blood Reflex 4+ A
(Negative)
Leukocyte Esterase Rfl 1+ A
(Negative)
Urine RBC >100 A /HPF
(0-2)
Urine WBC (Reflex) 11-15 A /HPF
(0-5)
Urine Bacteria (Reflex) Few A
(Negative)
Urine Albumin (Reflex) 3+ A
(Neg - Trace)
01/02/25 15:38
01/02/25 15:38
Vital Signs
Initial and Last Documented VS:
Initial Vital Signs
Temp Pulse Resp BP Pulse Ox
36.8 C 83 16 130/81 97
01/02/25 15:30 01/02/25 15:30 01/02/25 15:30 01/02/25 15:30 01/02/25 15:30
Last Documented Vital Signs
Temp Pulse Resp BP Pulse Ox
36.8 C 69 20 130/75 97
01/02/25 15:30 01/02/25 21:15 01/02/25 21:15 01/02/25 21:00 01/02/25 20:45
*Pulse Oximetry
SaO2: 98
Oxygen Mode of Delivery: Room air
Patient hypoxic: no
*Critical Care Note
Total Time (30-74mins, 75-104mins- exclusive of procedures): Not Applicable
ED Attending Note
-
Portions of this chart may have been created with voice recognition software.� Occasional wrong word or��sound alike� substitutions may have occurred due to the inherent limitations of voice recognition software.
Discharge Plan
Departure
Patient Disposition: Home (Routine Discharge)
Date of Disposition: 01/02/25
Time of Disposition: 21:26
Patient with high blood pressure during this ER visit?: Yes
Discharge Problem:
Weakness
Instructions: Fatigue (DC), Generalized Weakness (DC), BLOOD PRESSURE
Prescriptions:
No Action
warfarin [Coumadin] 4 mg Tablet
4 mg PO Q OTHER DAY
cephalexin 500 mg capsule
500 mg PO TID 7 Days Qty: 21 0RF
amoxicillin-pot clavulanate 875-125 mg tablet
1 tab PO BID Qty: 14 0RF
tramadol 50 mg tablet
50 - 100 mg PO Q8H PRN (Reason: Pain) Qty: 15 0RF
benzonatate 100 mg capsule
100 mg PO TID PRN (Reason: Cough) Qty: 30 0RF
Referrals:
Jessica Angel MD [Family Provider, Internal Medicine]
Naresh Berger MD [Active, Surgical]
Activity Restrictions/Additional Instructions:
Your INR is 1.69. Your white blood cell count is normal. Your hemoglobin is 12.2 which is slightly low but very similar to prior. Your kidney function is normal. Thyroid screening test is normal. You do have blood in the urine but no clear sign
of infection. Urine culture will be pending. The CAT scan shows no sign of blood clot but does show a triangular-shaped abnormality on the right side of uncertain etiology. The CAT scan also shows moderate hydroureteronephrosis with no sign of
kidney stone.
I have given you the contact information for a local general surgeon, [place].
CAT SCAN REPORT:
No evidence of pulmonary embolism.
Pulmonary artery branching order level of the most proximal pulmonary embolism: N/A
1.7 x 1.2 x 1.5 cm triangular shaped opacity in the anteromedial right middle lobe/inferior right upper lobe contiguous with the pleural surface, and appearing to extend through the margins of the pleura. Possible considerations include scarring,
atelectasis, pneumonia, or neoplasm. If there are no prior examinations available for comparison, follow-up PET/CT examination would be recommended.
Moderate left hydroureteronephrosis. No left renal or ureteral calculus. Asymmetric diffuse urinary bladder wall thickening and soft tissue stranding along the left posterolateral and lateral bladder margin, which may be contributing to obstruction
of the interstitial course of the left ureter. No bladder calculus. Mild, slightly increased left perinephric soft tissue stranding. Cannot exclude superimposed infection.
Right renal nonobstructing calculi and renal cysts.
If the patient has emphysema, patient should be assessed for an annual low dose lung cancer CT program, as pulmonary emphysema is an independent risk factor for lung cancer.
Interventions
Interventions:
*Risk Screen - Suicide Last Done: 01/02/25 15:35
*General Assessment Last Done: 01/02/25 19:05
*Neglect/Abuse Screening Last Done: 01/02/25 15:35
*ED- Fall Risk Assessment Last Done: 01/02/25 19:05
*ED COVID-19 Vaccine History Last Done: 01/02/25 19:05
*ED Influenza Vaccine History Last Done: 01/02/25 19:05
Discharge Date and Time
Print Language: [id number]
[2025-01-02] MEDS: NSS 500 IV (19:37)
[2025-01-02 20:11] LABS: Urine Character Cloudy (Clear)
[2025-01-02 20:24] LABS: Urine Red Blood Cell >100 /HPF (0-2); Urine Squamous Cell 0-2 /LPF (Few)
[2025-01-02 21:00] VITALS: BP 130/75
== END 2025-01-02 21:48 | disposition home or self-care (01) ==
LOC: EMR 15:21
PROVIDERS: Student in an Organized Health Care Education/Training Program; EMERGENCY PHYSICIAN Emergency Medicine; FAMILY PHYSICIAN Internal Medicine
DX: R53.1 Weakness (principal); I25.10 Atherosclerotic heart disease of native coronary artery without angina pectoris; I10 Essential (primary) hypertension; E03.9 Hypothyroidism, unspecified; Z79.01 Long term (current) use of anticoagulants; Z85.118 Personal history of other malignant neoplasm of bronchus and lung; Z85.820 Personal history of malignant melanoma of skin; Z86.74 Personal history of sudden cardiac arrest; Z87.442 Personal history of urinary calculi; Z87.891 Personal history of nicotine dependence; Z95.2 Presence of prosthetic heart valve
CPT/HCPCS: 99284; 96360; 71275; 74176; 80053; 81003; 81015; 84443; 85025; 85610; 85730; 87086; 93005; Q9967